=== PATIENT | male | born 1995 | race Caucasian/White ===

== ENCOUNTER → 2020-08-10 17:20 | Outpatient (CLI) | payer OTHER, SELFPAY | PROVIDERS: PCP Family Medicine; Referring Provider Family Medicine; Visit Provider Family Medicine | DX: R50.9 Fever, unspecified (principal) | CPT/HCPCS: 87635; C9803; U0003 ==

== ENCOUNTER → 2021-04-22 09:28 | Outpatient (CLI) | payer OTHER, SELFPAY ==
[2021-04-22 10:54] LABS: AST(SGOT) 42 U/L (15-37); Alanine Aminotransfer ALT/SGPT 66 U/L (16-61); Albumin, Serum 4.2 g/dL (3.2-5.0); Alkaline Phosphatase 96 U/L (45-117); Bilirubin, Direct 0.16 mg/dL (0.00-0.30); Globulin 3.9 g/dL (2.2-4.2); Protein, Total 8.1 g/dL (6.4-8.2)
== END ==
PROVIDERS: PCP Family Medicine; Referring Provider Family Medicine; Visit Provider Family Medicine
DX: R53.82 Chronic fatigue, unspecified (principal); R94.5 Abnormal results of liver function studies
CPT/HCPCS: 36415; 80076